=== PATIENT | male | born 1975 | race Caucasian/White ===

== ENCOUNTER 2018-08-23 17:19 | Emergency (ER) | payer SELFPAY ==
[2018-08-23] MEDS ORDERED: Clindamycin 150 MG CAP ONE (17:36)
--- NOTE | 2018-08-23 17:49 | RAD ---
LEFT HAND 3 VIEWS: Date: 08/23/18 HISTORY: Left hand pain and swelling. FINDINGS: There is some deformity to the tuft of the distal phalanx of the index finger which appears to be rel ated to an old injury. No acute bony findings are seen. No periosteal bony change. Joint spaces appea r fairly well preserved. Bone mineralization appears normal. IMPRESSION: No acute findings. POS: [facility]
== END 2018-08-23 18:01 | disposition home or self-care (01) ==
LOC: SCSER 17:19
DX: L03.012 Cellulitis of left finger (principal); F17.210 Nicotine dependence, cigarettes, uncomplicated